=== PATIENT | female | born 1985 | race Caucasian/White ===

== ENCOUNTER 2024-11-26 17:13 | Outpatient (CLI) | payer BC, SELFPAY ==
--- NOTE | 2024-11-26 17:50 | US_ITS ---
WS: [id number] RENAL ULTRASOUND HISTORY: NEPHROPTOSIS COMPARISON: None available. TECHNIQUE: 2-D and color Doppler imaging of the kidney submitted. Right kidney: 10.1 cm x 5.8 cm x 5.9 cm. Cortex: 1.0 cm Normal echogenicity with no hydronephrosis or mass. Left kidney: 11.6 cm x 5.6 cm x 5.5 cm. Cortex: 1.1 cm Normal echogenicity with no hydronephrosis or mass. Aorta: Normal. Urinary Bladder: Normal distention. US/US renal BI* [id number] IMPRESSION: Normal renal ultrasound. Both kidneys appear to be in normal position within the retroperitoneum.
== END 2024-11-26 17:14 | disposition home or self-care (01) ==
LOC: RAD 17:14
PROVIDERS: PCP Family Medicine; Visit Provider Internal Medicine Nephrology
DX: N28.83 Nephroptosis (principal)
CPT/HCPCS: 76770